=== PATIENT | female | born 1970 | race Caucasian/White ===

== ENCOUNTER → 2017-02-21 | Outpatient (CLI) | payer BC ==
[2006-03-19 15:00] VITALS: TEMP 97.1
[~2017-02-21] MED LIST: AMBIEN 5MG TABLE5 MG PO; TOPROL XL 25MG25 MG PO
== END ==
LOC: BHSO 08:59
DX: F41.1 Generalized anxiety disorder (principal)

== ENCOUNTER → 2017-08-17 | Outpatient (CLI) | payer BC ==
[2006-03-19 15:00] VITALS: TEMP 97.1
== END ==
LOC: BHSO 08:42
DX: F33.1 Major depressive disorder, recurrent, moderate (principal)

== ENCOUNTER → 2018-03-05 | Outpatient (CLI) | payer BC ==
[2006-03-19 15:00] VITALS: TEMP 97.1
== END ==
LOC: BHSO 09:24
DX: F41.1 Generalized anxiety disorder (principal)
CPT/HCPCS: G0463

== ENCOUNTER → 2018-07-05 | Outpatient (CLI) | payer BC ==
[2006-03-19 15:00] VITALS: TEMP 97.1
== END ==
LOC: BHSO 14:21
DX: F41.1 Generalized anxiety disorder (principal)
CPT/HCPCS: G0463

== ENCOUNTER 2022-03-11 11:13 | Emergency (ER) | payer OTHER ==
[~2022-03-11] VITALS: Ht 167.6 cm; Wt 88.6 kg
[2022-03-11 11:33] VITALS: TEMP 98.1
[2022-03-11] MEDS ORDERED: NORVASC 10MG10 MG (12:22)
[2022-03-11] MEDS ORDERED: BYSTOLIC5 MG (12:22)
[2022-03-11] MEDS ORDERED: ARMOUR THYROID120 MG (12:23)
[2022-03-11 12:29] LABS: BASO # 0.1 K/mm3 (0.0-0.2); BASO % 0.4 % (0.0-2.0); EOS # 0.1 K/mm3 (0.0-0.7); EOS % 0.5 % (0.0-4.0); GRAN # 9.3 K/mm3 (1.4-6.5); HEMATOCRIT 44.3 % (37.0-47.0); HEMOGLOBIN 15.3 g/dl (12.5-16.0); LYMPH # 2.8 K/mm3 (1.2-3.4); MEAN CELL VOLUME 92 fl (80.0-100.0); MEAN CORPUSCULAR HEMOGLOBIN 32 pg (27-31); MEAN CORPUSCULAR HGB CONC 35 g/dl (33.0-37.0); MEAN PLATELET VOLUME 9.8 fl (7.4-10.4); MONO # 0.9 K/mm3 (0.1-0.6); MONO % 6.6 % (1.7-9.3); PLATELET COUNT 459 K/mm3 (130-400); RED BLOOD COUNT 4.83 M/mm3 (4.10-5.30); REDCELL DISTRIBUTION WIDTH-CV 13.8 % (11.5-14.5)
[2022-03-11 12:45] LABS: ALANINE AMINOTRANSFERASE 45 U/L (0-55); ALBUMIN 4.3 gm/dL (3.5-5.0); ALKALINE PHOSPHATASE 134 U/L (40-150); ANION GAP 14 mmol/L (7-16); AST,SGOT 24 U/L (5-34); BILIRUBIN,TOTAL 0.3 mg/dL (0.2-1.2); BLOOD UREA NITROGEN 15 mg/dL (7-19); CALCIUM 9.4 mg/dL (8.4-10.2); CARBON DIOXIDE 25 mmol/L (22-29); CHLORIDE 101 mmol/L (98-107); CREATININE, serum 0.96 mg/dL (0.57-1.11); GLUCOSE 122 mg/dL (70-99); POTASSIUM 3.3 mmol/L (3.5-4.5); SODIUM 140 mmol/L (136-145); TOTAL PROTEIN 8.2 gm/dL (6.2-8.1)
[2022-03-11 13:02] LABS: TROPONIN-I < 0.010 ng/mL (0.00-0.033)
[2022-03-11] MEDS ORDERED: PERCOCET 325 MG1 TA2 PO (13:40)
[2022-03-11] MEDS ORDERED: ZITHROMAX Z PA250 MG PO (13:40)
[2022-03-11 13:46] VITALS: BP 170/132; PULSE 94
== END 2022-03-11 14:00 | disposition home or self-care (01) ==
LOC: COL.ER 11:13
PROVIDERS: Personal Emergency Response Attendant
DX: J40 Bronchitis, not specified as acute or chronic (principal); Z88.0 Allergy status to penicillin
CPT/HCPCS: J0696; J1885; J7030